=== PATIENT | female | born 2000 | race Hispanic/Latino ===

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

== ENCOUNTER 2022-02-25 10:46 | Inpatient (IN) | payer OTHER ==
[2022-02-25] VITALS (40 sets, daily range): BP systolic 111–185; BP diastolic 58–107
[~2022-02-25] VITALS: Ht 165.1 cm; Wt 75.7 kg
[2022-02-25] MEDS ORDERED: VITA100T59 PO (11:13)
[2022-02-25] MEDS ORDERED: SERT-141 PO (11:13)
[2022-02-25] MEDS ORDERED: HOME MED LIST COMPLETE! XX SCH (11:15)
[2022-02-25] MEDS ORDERED: LR 1,000 ML IV SCH (12:40)
[2022-02-25] MEDS ORDERED: LIDOCAINE 1% MDV 20ML VIAL INFIL PRN (12:40)
[2022-02-25] MEDS ORDERED: OXYTOCIN DRIP 30 UNITS in IV 1 EA IV PRN ×4 (12:40)
[2022-02-25] MEDS ORDERED: METHYLERGONOVINE MALEATE 0.2 MG/ML VIAL (J2210) IM PRN (12:40)
[2022-02-25] MEDS: miSOPROStol 25MCG 1/4 TABLET PO SCH ×2 (13:16→17:19)
[2022-02-25 13:32] LABS: HEMATOCRIT 34.3 % (36.0-47.0); HEMOGLOBIN 11.1 g/dl (12.0-15.5); MEAN CORPUSCULAR HEMOGLOBIN 27.4 pg (27.0-33.0); MEAN CORPUSCULAR HGB CONC 32.4 g/dl (32.0-36.5); MEAN CORPUSCULAR VOLUME 84.7 fl (80.0-96.0); PLATELET COUNT, AUTOMATED 321 10^3/uL (150-450); RED BLOOD COUNT 4.05 10^6/uL (4.00-5.40); WHITE BLOOD COUNT 13.6 10^3/uL (4.0-10.0)
[2022-02-25] MEDS ORDERED: FENTANYL 2MCG/ML ROPIVACAINE 0.2% IN 0.9% NACL 100ML IVBAG As Ordered ONE (21:23)
[2022-02-25] MEDS ORDERED: LR 500 ML IV PRN (22:20)
[2022-02-25] MEDS ORDERED: NALOXONE INJ 0.4MG/1ML VIAL (J2310 PER 1MG) IV PRN (22:20)
[2022-02-25] MEDS ORDERED: ONDANSETRON 4MG 2ML VIAL IV PRN (22:20)
[2022-02-25] MEDS ORDERED: ePHEDrine SULFATE 25 MG/5 ML(5MG/ML) SYRINGE IVP PRN (22:20)
[2022-02-25] MEDS ORDERED: EPIDURAL/PCA KEYS XX PRN (22:20)
[2022-02-25] MEDS ORDERED: FENTANYL/ROPIVACAINE/NACL BAG 100 ML EPIDURAL SCH (22:20)
[2022-02-25] MEDS ORDERED: diphenhydrAMINE 50MG/ML VIAL (J1200) IV PRN (22:20)
[2022-02-25] MEDS ORDERED: OXYTOCIN DRIP 30 UNITS in IV 1 EA IV SCH (22:35)
[2022-02-26] VITALS (43 sets, daily range): BP systolic 93–215; BP diastolic 56–90
[2022-02-26] MEDS ORDERED: ANUSOL HC CREAM 30GM TOP PRN (09:00)
[2022-02-26] MEDS ORDERED: DOCUSATE SODIUM 100MG CAPSULE PO PRN (09:00)
[2022-02-26] MEDS: ACETAMINOPHEN 500 MG TAB PO PRN (10:21)
[2022-02-26] MEDS: PRENATAL VITAMINS CHEWABLE TABLET PO SCH (12:10)
[2022-02-26] MEDS: SERTRALINE HCL 50 MG TAB PO SCH (12:10)
[2022-02-26] MEDS: DIBUCAINE 1% OINTMENT 30GM TOP PRN (15:41)
[2022-02-26] MEDS: IBUPROFEN 800 MG TAB PO PRN (15:42)
[2022-02-27] MEDS: IBUPROFEN 800 MG TAB PO PRN ×2 (00:28→13:04)
[2022-02-27 06:00] VITALS: BP 115/55
[2022-02-27] MEDS: ACETAMINOPHEN 500 MG TAB PO PRN ×3 (06:32→19:49)
[2022-02-27] MEDS: SERTRALINE HCL 50 MG TAB PO SCH (09:50)
[2022-02-27] MEDS: PRENATAL VITAMINS CHEWABLE TABLET PO SCH (09:50)
[2022-02-27 18:00] VITALS: BP_SYST 131; BP_SYST 134; BP_DIAS 61; BP_DIAS 77
[2022-02-27] MEDS: DIBUCAINE 1% OINTMENT 30GM TOP PRN (23:22)
[2022-02-28] MEDS: IBUPROFEN 800 MG TAB PO PRN ×2 (05:33→12:40)
[2022-02-28 06:05] VITALS: BP 139/86
[2022-02-28] MEDS ORDERED: IBUP80TA PO (06:59)
[2022-02-28] MEDS ORDERED: PRENCHW PO (06:59)
[2022-02-28] MEDS ORDERED: COLA100C5 PO (06:59)
[2022-02-28] MEDS: SERTRALINE HCL 50 MG TAB PO SCH (08:23)
[2022-02-28] MEDS: PRENATAL VITAMINS CHEWABLE TABLET PO SCH (08:23)
[2022-02-28] MEDS ORDERED: MEASLES,MUMPS,RUBELLA VACCINE INJ (MMR-II) (90707) SC.IMMUN ONE (09:00)
[2022-02-28] MEDS: ACETAMINOPHEN 500 MG TAB PO PRN (12:39)
== END 2022-02-28 06:57 | disposition home or self-care (01) | DRG 807 ==
LOC: M LDI 10:46 → M OBS 02-26 13:27
PROVIDERS: ADMIT Obstetrics & Gynecology; ATTEND Obstetrics & Gynecology
PROC: 3E033VJ Introduction of Other Hormone into Peripheral Vein, Percutaneous Approach (ICD-10-PCS; 2022-02-25)
PROC: 10E0XZZ Delivery of Products of Conception, External Approach (ICD-10-PCS; principal; 2022-02-26)
PROC: 0HQ9XZZ Repair Perineum Skin, External Approach (ICD-10-PCS; 2022-02-26)
DX: O35.8XX0 Maternal care for other (suspected) fetal abnormality and damage, not applicable or unspecified (principal); Z37.0 Single live birth; F32.A Depression, unspecified; F41.9 Anxiety disorder, unspecified; F43.10 Post-traumatic stress disorder, unspecified; O69.81X0 Labor and delivery complicated by cord around neck, without compression, not applicable or unspecified; O70.0 First degree perineal laceration during delivery; O99.344 Other mental disorders complicating childbirth; Z3A.39 39 weeks gestation of pregnancy; Z88.5 Allergy status to narcotic agent; Z79.899 Other long term (current) drug therapy

== ENCOUNTER 2022-09-21 21:08 | Emergency (ER) | payer OTHER ==
[~2022-09-21] VITALS: Ht 165.1 cm; Wt 58.7 kg
[~2022-09-21 21:08] MED LIST changes: +COLA100C5 PO; +IBUP80TA PO; +PRENCHW PO; +SERT-141 PO; +VITA100T59 PO
[2022-09-22] MEDS ORDERED: AMOX875T2 PO (00:48)
[2022-09-22] MEDS ORDERED: AUGMENTIN 875 MG TAB PO ONE (00:50)
[2022-09-22 00:55] VITALS: BP 126/64
== END 2022-09-22 00:55 | disposition home or self-care (01) ==
LOC: M ED 21:08
DX: H65.01 Acute serous otitis media, right ear (principal); F41.9 Anxiety disorder, unspecified; F32.A Depression, unspecified; Z88.6 Allergy status to analgesic agent; Z79.2 Long term (current) use of antibiotics

== ENCOUNTER 2023-01-26 14:24 | Emergency (ER) | payer OTHER ==
[~2023-01-26] VITALS: Ht 165.1 cm; Wt 59.1 kg
[~2023-01-26 14:24] MED LIST changes: +AMOX875T2 PO
[2023-01-26] MEDS ORDERED: MULTCHW14 PO (14:35)
[2023-01-26 16:08] LABS: BASO # 0.1 10^3/uL (0.0-0.2); BASO % 0.9 % (0.0-1.0); EOS # 0.2 10^3/uL (0.0-0.5); EOS % 2.8 % (0.0-3.0); HEMATOCRIT 34.1 % (36.0-47.0); HEMOGLOBIN 11.5 g/dl (12.0-15.5); LYMPH # 2.9 10^3/uL (1.5-5.0); MEAN CORPUSCULAR HEMOGLOBIN 29.9 pg (27.0-33.0); MEAN CORPUSCULAR HGB CONC 33.7 g/dl (32.0-36.5); MEAN CORPUSCULAR VOLUME 88.8 fl (80.0-96.0); MONO # 0.7 10^3/uL (0.0-0.8); MONO % 9.1 % (2.0-8.0); NEUTROPHILS # 4.1 10^3/uL (1.5-8.5); PLATELET COUNT, AUTOMATED 314 10^3/uL (150-450); RED BLOOD COUNT 3.84 10^6/uL (4.00-5.40); WHITE BLOOD COUNT 8.1 10^3/uL (4.0-10.0)
[2023-01-26 16:22] LABS: HCG, SERUM QUALITATIVE NEGATIVE (NEGATIVE)
[2023-01-26 16:25] LABS: BLOOD UREA NITROGEN 17 MG/DL (9-23); CALCIUM LEVEL 8.7 MG/DL (8.5-10.1); CARBON DIOXIDE LEVEL 24 MMOL/L (20-31); CHLORIDE LEVEL 106 MMOL/L (98-107); CK-MB VALUE MASS < 1.0 NG/ML (<3.6); CPK CREATINE PHOSPHOKINASE 103 U/L (34-145); GLUCOSE, FASTING 82 MG/DL (60-100); MB/CK RELATIVE INDEX 0.97 (< OR =4); POTASSIUM SERUM 3.8 MMOL/L (3.5-5.1); SODIUM LEVEL 138 MMOL/L (136-145)
[2023-01-26 16:26] LABS: THYROID STIMULATING HORMONE 0.764 uIU/ML (0.48-4.17)
[2023-01-26 17:45] VITALS: TEMP 98.2; O2SAT 100
[2023-01-26] MEDS ORDERED: NS 1,000 ML IV ONE (18:30)
[2023-01-26 18:35] VITALS: BP 125/78
== END 2023-01-26 19:38 | disposition home or self-care (01) ==
LOC: M ED 14:24
DX: R55 Syncope and collapse (principal); F32.A Depression, unspecified; F41.9 Anxiety disorder, unspecified; Z88.5 Allergy status to narcotic agent